=== PATIENT | female | born 1960 | race Caucasian/White ===

== ENCOUNTER 2017-04-25 15:38 | Emergency (ER) | payer OTHER ==
[~2017-04-25] VITALS: Ht 180.3 cm; Wt 96.8 kg
[2017-04-25 18:34] VITALS: BP 154/98
== END 2017-04-25 18:36 | disposition home or self-care (01) ==
LOC: ED 18:15
DX: B00.1 Herpesviral vesicular dermatitis (principal); I10 Essential (primary) hypertension
CPT/HCPCS: 99283